=== PATIENT | female | born 1985 | race Caucasian/White ===

== ENCOUNTER 2016-10-13 15:23 | Emergency (ER) | payer OTHER | END 2016-10-13 15:45 | disposition home or self-care (01) | LOC: CED 15:23 | DX: S41.102A Unspecified open wound of left upper arm, initial encounter (principal); V49.20XA Unspecified car occupant injured in collision with unspecified motor vehicles in nontraffic accident, initial encounter; Z23 Encounter for immunization | CPT/HCPCS: 90471; 90715; 99283 ==